=== PATIENT | male | born 1985 | race Caucasian/White ===

== ENCOUNTER → 2018-03-13 | Outpatient (CLI) | payer OTHER | LOC: M WUC 13:42 | DX: S60.031A Contusion of right middle finger without damage to nail, initial encounter (principal); X58.XXXA Exposure to other specified factors, initial encounter; Y92.9 Unspecified place or not applicable | CPT/HCPCS: 73140 ==

== ENCOUNTER 2022-12-13 09:10 | Emergency (ER) | payer OTHER ==
[~2022-12-13] VITALS: Ht 177.8 cm; Wt 80.6 kg
[2022-12-13 09:11] VITALS: BP 142/90
[2022-12-13] MEDS ORDERED: CLAR10CA3 PO (09:19)
[2022-12-13] MEDS ORDERED: TETRACAINE 0.5% OPHTH SOLN 4ML OS ONE (11:20)
== END 2022-12-13 12:50 | disposition home or self-care (01) ==
LOC: M ED 09:10
DX: H57.12 Ocular pain, left eye (principal); Z88.1 Allergy status to other antibiotic agents; Z79.1 Long term (current) use of non-steroidal anti-inflammatories (NSAID)